=== PATIENT | female | born 1945 | race Caucasian/White ===

== ENCOUNTER 2019-06-29 09:02 | Emergency (ER) | payer MEDICARE, OTHER ==
[~2019-06-29] VITALS: Ht 162.6 cm; Wt 90.7 kg
[2019-06-29] MEDS ORDERED: Atenolol50 MG PO (09:55)
[2019-06-29] MEDS ORDERED: LOVA40 PO (09:56)
[2019-06-29] MEDS ORDERED: ESOMEPRAZOLE MA40 MG PO (09:56)
[2019-06-29 10:24] LABS: BASOPHILS ABSOLUTE AUTO 0.09 K/mm3 (0.00-0.23); BASOPHILS PERCENT AUTO 0 % (0-2); EOSINOPHILS ABSOLUTE AUTO 0.02 K/mm3 (0.00-0.68); EOSINOPHILS PERCENT AUTO 0 % (0-6); Hemoglobin 13.5 g/dL (11.5-16.0); IMMATURE GRAN ABSOLUTE AUTO 0.17 K/mm3 (0.00-0.10); IMMATURE GRAN PERCENT AUTO 1 % (0-1); LYMPHOCYTES ABSOLUTE AUTO 2.52 K/mm3 (0.84-5.20); LYMPHOCYTES PERCENT AUTO 9 % (21-46); MONOCYTES ABSOLUTE AUTO 1.09 K/mm3 (0.16-1.47); MONOCYTES PERCENT AUTO 4 % (4-13); Mean Corpuscular HGB 28.7 pg (26.0-34.0); Mean Corpuscular HGB Conc 32.1 g/dL (31.5-36.5); Mean Corpuscular Volume 89 fL (80-100); Mean Platelet Volume 11.3 fL (9.1-12.4); NEUTROPHILS ABSOLUTE AUTO 22.89 K/mm3 (1.96-9.15); NEUTROPHILS PERCENT AUTO 86 % (41-73); Platelet Count 172 K/mm3 (150-400); RDW Standard Deviation 45.4 fL (35.1-46.3); White Blood Cell Count 26.78 K/mm3 (4.00-11.30)
[2019-06-29 10:47] LABS: Alanine Aminotransfer (ALT/SGP 35 U/L (12-78); Albumin, Blood 3.5 g/dL (3.4-5.0); Alk Phos 111 U/L (50-136); Anion Gap 8 mmol/L (6-16); Aspartate Aminotrans (AST/SGOT 25 U/L (12-37); Bilirubin, Total 0.7 mg/dL (0.1-1.0); Blood Urea Nitrogen 23 mg/dL (8-24); Bun/Creatinine Ratio 31.3 (12.0-20.0); CO2, Blood 21 mmol/L (21-32); Calcium, Blood 8.7 mg/dL (8.5-10.1); Chloride, Blood 110 mmol/L (98-108); Creatinine, Blood 0.73 mg/dL (0.40-1.00); Globulin, Blood 3.6 g/dL (2.2-4.0); Glomerular Filtration Rate >60 (60-); Glucose, Blood 110 mg/dL (70-99); Potassium, Blood 4.2 mmol/L (3.5-5.5); Sodium, Blood 139 mmol/L (136-145); Total Protein, Blood 7.1 g/dL (6.4-8.2)
[2019-06-29 11:04] LABS: Source, Urine Clean Catch
[2019-06-29 11:07] LABS: Bilirubin, Urine Neg (Neg); Blood, Urine 2+ (Neg); Glucose Qualitative, Urine Neg (Neg); Ketones, Urine 1+ (Neg); Leukocyte Esterase, Urine 1+ (Neg); Nitrite, Urine Pos (Neg); Protein, Urine 1+ (Neg); Urobilinogen, Urine NORM (Normal)
[2019-06-29 11:17] LABS: Appearance, Urine Cloudy (Clear); Color, Urine Yellow (P-Yellow)
[2019-06-29 11:18] LABS: Bacteria Many /hpf; Squamous Epithelial Cells Few /hpf (Few)
[2019-06-29] MEDS ORDERED: AZIT250 PO (11:42)
== END 2019-06-29 11:57 | disposition home or self-care (01) ==
LOC: ER 09:02
PROVIDERS: Emergency Medicine
DX: J18.1 Lobar pneumonia, unspecified organism (principal); Z91.018 Allergy to other foods; Z87.891 Personal history of nicotine dependence
CPT/HCPCS: 36415; 71045; 80053; 81001; 85025; 87077; 87086; 87186; 93005; 93010; 96365; 99284-25; J0696

== ENCOUNTER 2019-07-22 08:54 | Emergency (ER) | payer MEDICARE, OTHER ==
[~2019-07-22] VITALS: Ht 162.6 cm; Wt 90.7 kg
[~2019-07-22 08:54] MED LIST: AZIT250 PO; Atenolol50 MG PO; ESOMEPRAZOLE MA40 MG PO; LOVA40 PO
[2019-07-22 10:05] LABS: BASOPHILS ABSOLUTE AUTO 0.07 K/mm3 (0.00-0.23); BASOPHILS PERCENT AUTO 0 % (0-2); EOSINOPHILS ABSOLUTE AUTO 0.08 K/mm3 (0.00-0.68); EOSINOPHILS PERCENT AUTO 0 % (0-6); Hematocrit 41.6 % (33.0-51.0); Hemoglobin 13.4 g/dL (11.5-16.0); IMMATURE GRAN ABSOLUTE AUTO 0.09 K/mm3 (0.00-0.10); IMMATURE GRAN PERCENT AUTO 0 % (0-1); LYMPHOCYTES PERCENT AUTO 12 % (21-46); MONOCYTES ABSOLUTE AUTO 0.91 K/mm3 (0.16-1.47); MONOCYTES PERCENT AUTO 4 % (4-13); Mean Corpuscular HGB 27.9 pg (26.0-34.0); Mean Corpuscular HGB Conc 32.2 g/dL (31.5-36.5); Mean Corpuscular Volume 87 fL (80-100); Mean Platelet Volume 11.4 fL (9.1-12.4); NEUTROPHILS ABSOLUTE AUTO 19.09 K/mm3 (1.96-9.15); NEUTROPHILS PERCENT AUTO 83 % (41-73); Platelet Count 216 K/mm3 (150-400); RDW Standard Deviation 44.7 fL (35.1-46.3); White Blood Cell Count 22.94 K/mm3 (4.00-11.30)
[2019-07-22 10:22] LABS: Alanine Aminotransfer (ALT/SGP 32 U/L (12-78); Albumin, Blood 3.8 g/dL (3.4-5.0); Alk Phos 118 U/L (50-136); Anion Gap 9 mmol/L (6-16); Aspartate Aminotrans (AST/SGOT 18 U/L (12-37); Bilirubin, Total 0.6 mg/dL (0.1-1.0); Blood Urea Nitrogen 23 mg/dL (8-24); Bun/Creatinine Ratio 30.5 (12.0-20.0); CO2, Blood 25 mmol/L (21-32); Calcium, Blood 9.2 mg/dL (8.5-10.1); Chloride, Blood 106 mmol/L (98-108); Creatinine, Blood 0.75 mg/dL (0.40-1.00); Globulin, Blood 3.7 g/dL (2.2-4.0); Glomerular Filtration Rate >60 (60-); Glucose, Blood 112 mg/dL (70-99); Potassium, Blood 4.2 mmol/L (3.5-5.5); Sodium, Blood 140 mmol/L (136-145); Total Protein, Blood 7.5 g/dL (6.4-8.2)
[2019-07-22 11:19] LABS: Source, Urine Voided
[2019-07-22 11:29] LABS: Appearance, Urine Clear (Clear); Bilirubin, Urine Neg (Neg); Blood, Urine Neg (Neg); Color, Urine Yellow (P-Yellow); Glucose Qualitative, Urine Neg (Neg); Ketones, Urine Neg (Neg); Leukocyte Esterase, Urine Neg (Neg); Nitrite, Urine Neg (Neg); Protein, Urine Neg (Neg); Urobilinogen, Urine NORM (Normal)
[2019-07-22] MEDS ORDERED: ALBU90OI INH (12:13)
[2019-07-22] MEDS ORDERED: Zithromax250 MG PO (12:13)
== END 2019-07-22 12:18 | disposition home or self-care (01) ==
LOC: ER 08:54
PROVIDERS: Emergency Medicine
DX: R05 Cough (principal); R06.2 Wheezing; D72.829 Elevated white blood cell count, unspecified; I10 Essential (primary) hypertension; E78.00 Pure hypercholesterolemia, unspecified; Z87.891 Personal history of nicotine dependence; Z91.018 Allergy to other foods; Z79.899 Other long term (current) drug therapy
CPT/HCPCS: 36415; 71046; 80053; 81003; 85025; 99283-25

== ENCOUNTER 2020-10-09 13:23 | Emergency (ER) | payer MEDICARE, OTHER ==
[~2020-10-09] VITALS: Ht 162.6 cm; Wt 99.8 kg
[~2020-10-09 13:23] MED LIST changes: +ALBU90OI INH; -Atenolol50 MG PO; -ESOMEPRAZOLE MA40 MG PO; -LOVA40 PO; +Zithromax250 MG PO
[2020-10-09 14:02] LABS: BASOPHILS ABSOLUTE AUTO 0.07 K/mm3 (0.00-0.23); BASOPHILS PERCENT AUTO 1 % (0-2); EOSINOPHILS ABSOLUTE AUTO 0.25 K/mm3 (0.00-0.68); EOSINOPHILS PERCENT AUTO 2 % (0-6); Hematocrit 42.1 % (33.0-51.0); Hemoglobin 13.4 g/dL (11.5-16.0); IMMATURE GRAN ABSOLUTE AUTO 0.05 K/mm3 (0.00-0.10); IMMATURE GRAN PERCENT AUTO 0 % (0-1); LYMPHOCYTES ABSOLUTE AUTO 2.87 K/mm3 (0.84-5.20); LYMPHOCYTES PERCENT AUTO 23 % (21-46); MONOCYTES ABSOLUTE AUTO 0.77 K/mm3 (0.16-1.47); MONOCYTES PERCENT AUTO 6 % (4-13); Mean Corpuscular HGB 27.3 pg (26.0-34.0); Mean Corpuscular HGB Conc 31.8 g/dL (31.5-36.5); Mean Corpuscular Volume 86 fL (80-100); Mean Platelet Volume 10.9 fL (9.1-12.4); NEUTROPHILS ABSOLUTE AUTO 8.55 K/mm3 (1.96-9.15); NEUTROPHILS PERCENT AUTO 68 % (41-73); Platelet Count 235 K/mm3 (150-400); RDW Coefficient Variation 13.8 % (11.7-14.2); RDW Standard Deviation 42.8 fL (35.1-46.3); White Blood Cell Count 12.56 K/mm3 (4.00-11.30)
[2020-10-09 14:23] LABS: Alanine Aminotransfer (ALT/SGP 32 U/L (12-78); Albumin, Blood 3.8 g/dL (3.4-5.0); Alk Phos 146 U/L (50-136); Anion Gap 10 mmol/L (6-16); Aspartate Aminotrans (AST/SGOT 18 U/L (12-37); Bilirubin, Total 0.3 mg/dL (0.1-1.0); Blood Urea Nitrogen 20 mg/dL (8-24); Bun/Creatinine Ratio 28.8 (12.0-20.0); CO2, Blood 23 mmol/L (21-32); Calcium, Blood 8.8 mg/dL (8.5-10.1); Chloride, Blood 107 mmol/L (98-108); Creatinine, Blood 0.69 mg/dL (0.40-1.00); Glomerular Filtration Rate >60 (60-); Glucose, Blood 125 mg/dL (70-99); Sodium, Blood 140 mmol/L (136-145); Total Protein, Blood 7.8 g/dL (6.4-8.2)
[2020-10-09 16:45] LABS: Source, Urine Voided
[2020-10-09 16:50] LABS: Appearance, Urine Clear (Clear); Bilirubin, Urine Neg (Neg); Blood, Urine Neg (Neg); Color, Urine Yellow (P-Yellow); Glucose Qualitative, Urine Neg (Neg); Ketones, Urine Neg (Neg); Leukocyte Esterase, Urine Neg (Neg); Nitrite, Urine Pos (Neg); Protein, Urine Neg (Neg); Specific Gravity, Urine 1.015 (1.003-1.022); Urobilinogen, Urine NORM (Normal)
[2020-10-09 17:02] LABS: Bacteria Many /hpf; Red Blood Cells, Urine 0-2 /hpf (0-2); Squamous Epithelial Cells Few /hpf (Few)
[2020-10-09] MEDS ORDERED: Pepcid20 MG PO (17:37)
[2020-10-09] MEDS ORDERED: ACETAMINOPHEN500 MG PO (17:37)
[2020-10-09] MEDS ORDERED: CEPH500 PO (17:37)
== END 2020-10-09 18:00 | disposition home or self-care (01) ==
LOC: ER 13:23
PROVIDERS: Emergency Medicine; Physician Assistant
DX: N39.0 Urinary tract infection, site not specified (principal); K52.9 Noninfective gastroenteritis and colitis, unspecified; K44.9 Diaphragmatic hernia without obstruction or gangrene; I10 Essential (primary) hypertension; E78.00 Pure hypercholesterolemia, unspecified; Z88.8 Allergy status to other drugs, medicaments and biological substances; Z91.048 Other nonmedicinal substance allergy status; Z79.899 Other long term (current) drug therapy; Z87.891 Personal history of nicotine dependence
CPT/HCPCS: 36415; 74177; 80053; 81001; 83690; 84484; 85025; 87077; 87086; 87186; 93005; 93010; 96361; 96365-59; 99285-25; A9270; J0696; J7030; Q9967

== ENCOUNTER 2020-11-15 14:19 | Inpatient (IN) | payer MEDICARE, OTHER ==
[~2020-11-15] VITALS: Ht 162.6 cm; Wt 90.7 kg
[~2020-11-15 14:19] MED LIST changes: +ACETAMINOPHEN500 MG PO; +CEPH500 PO; +Pepcid20 MG PO
[2020-11-15 15:11] LABS: BASOPHILS ABSOLUTE AUTO 0.06 K/mm3 (0.00-0.23); BASOPHILS PERCENT AUTO 0 % (0-2); EOSINOPHILS ABSOLUTE AUTO 0.04 K/mm3 (0.00-0.68); EOSINOPHILS PERCENT AUTO 0 % (0-6); Hematocrit 41.7 % (33.0-51.0); Hemoglobin 13.4 g/dL (11.5-16.0); IMMATURE GRAN ABSOLUTE AUTO 0.15 K/mm3 (0.00-0.10); IMMATURE GRAN PERCENT AUTO 1 % (0-1); LYMPHOCYTES ABSOLUTE AUTO 1.69 K/mm3 (0.84-5.20); LYMPHOCYTES PERCENT AUTO 8 % (21-46); MONOCYTES ABSOLUTE AUTO 0.97 K/mm3 (0.16-1.47); MONOCYTES PERCENT AUTO 4 % (4-13); Mean Corpuscular HGB 27.1 pg (26.0-34.0); Mean Corpuscular HGB Conc 32.1 g/dL (31.5-36.5); Mean Corpuscular Volume 84 fL (80-100); Mean Platelet Volume 11.7 fL (9.1-12.4); NEUTROPHILS ABSOLUTE AUTO 19.66 K/mm3 (1.96-9.15); NEUTROPHILS PERCENT AUTO 87 % (41-73); Platelet Count 247 K/mm3 (150-400); RDW Coefficient Variation 13.8 % (11.7-14.2); RDW Standard Deviation 42.3 fL (35.1-46.3); Red Blood Cell Count 4.95 M/mm3 (3.80-5.20); White Blood Cell Count 22.57 K/mm3 (4.00-11.30)
[2020-11-15 15:40] LABS: Alanine Aminotransfer (ALT/SGP 29 U/L (12-78); Albumin, Blood 3.9 g/dL (3.4-5.0); Alk Phos 149 U/L (50-136); Anion Gap 8 mmol/L (6-16); Aspartate Aminotrans (AST/SGOT 26 U/L (12-37); Bilirubin, Total 0.6 mg/dL (0.1-1.0); Blood Urea Nitrogen 19 mg/dL (8-24); Bun/Creatinine Ratio 24.9 (12.0-20.0); CO2, Blood 26 mmol/L (21-32); Calcium, Blood 9.6 mg/dL (8.5-10.1); Chloride, Blood 106 mmol/L (98-108); Creatinine, Blood 0.76 mg/dL (0.40-1.00); Globulin, Blood 3.8 g/dL (2.2-4.0); Glomerular Filtration Rate >60 (60-); Glucose, Blood 119 mg/dL (70-99); Potassium, Blood 4.1 mmol/L (3.5-5.5); Sodium, Blood 140 mmol/L (136-145); Total Protein, Blood 7.7 g/dL (6.4-8.2)
[2020-11-15] MEDS ORDERED: HYDROCODONE-AC1 EA11 PO (17:01)
[2020-11-15] MEDS ORDERED: FAMO20 PO (17:01)
[2020-11-15] MEDS ORDERED: Atenolol50 MG PO (17:02)
[2020-11-15] MEDS ORDERED: Prinivil10 MG PO (17:02)
[2020-11-15] MEDS ORDERED: LOVA40 PO (17:02)
[2020-11-15] MEDS ORDERED: ESOMEPRAZOLE MA40 MG PO (17:03)
--- NOTE | 2020-11-15 21:00 | NUR ---
pt arrived to room from ER via stretcher, a/o x 4, pleasant/cooperative and talkative. dunn catheter inserted per orders, UA send. COVID-19 sample send per orders. pt oriented to room/call light, PO fluids provided as well as analgesia per nov. pt provided health hx and med rec.
[2020-11-15 21:19] LABS: Source, Urine Catheter
[2020-11-15 21:22] LABS: Bilirubin, Urine Neg (Neg); Blood, Urine 1+ (Neg); Glucose Qualitative, Urine Neg (Neg); Ketones, Urine 2+ (Neg); Leukocyte Esterase, Urine 2+ (Neg); Nitrite, Urine Pos (Neg); Protein, Urine Neg (Neg); Urobilinogen, Urine NORM (Normal)
[2020-11-15 21:28] LABS: Appearance, Urine Hazy (Clear); Color, Urine Yellow (P-Yellow)
[2020-11-15 21:29] LABS: Bacteria Many /hpf; Red Blood Cells, Urine Not Seen /hpf (0-2); Squamous Epithelial Cells Few /hpf (Few); White Blood Cells, Urine TNTC /hpf (0-5)
[2020-11-15 22:14] LABS: Influenza A, PCR NEGATIVE (NEGATIVE); Influenza B, PCR NEGATIVE (NEGATIVE); Resp Syncytial Virus, PCR NEGATIVE (NEGATIVE); SARS-Cov-2 (COVID-19) PCR, MMC NEGATIVE (NEGATIVE)
--- NOTE | 2020-11-15 22:55 | NUR ---
ASSUMED CARE OF PT. PT WAS STARTED ON IV ABX FOR UTI, FLUIDS ALSO STARTED. SURGICAL PACKET ON CHART. PT RESTING COMFORTABLEY AT THIS TIME.
[2020-11-16 04:36] LABS: BASOPHILS ABSOLUTE AUTO 0.04 K/mm3 (0.00-0.23); BASOPHILS PERCENT AUTO 0 % (0-2); EOSINOPHILS ABSOLUTE AUTO 0.22 K/mm3 (0.00-0.68); EOSINOPHILS PERCENT AUTO 2 % (0-6); Hematocrit 34.6 % (33.0-51.0); Hemoglobin 11.7 g/dL (11.5-16.0); IMMATURE GRAN ABSOLUTE AUTO 0.05 K/mm3 (0.00-0.10); IMMATURE GRAN PERCENT AUTO 0 % (0-1); LYMPHOCYTES ABSOLUTE AUTO 1.82 K/mm3 (0.84-5.20); LYMPHOCYTES PERCENT AUTO 15 % (21-46); MONOCYTES ABSOLUTE AUTO 0.85 K/mm3 (0.16-1.47); MONOCYTES PERCENT AUTO 7 % (4-13); Mean Corpuscular HGB 27.9 pg (26.0-34.0); Mean Corpuscular HGB Conc 33.8 g/dL (31.5-36.5); Mean Corpuscular Volume 83 fL (80-100); Mean Platelet Volume 11.5 fL (9.1-12.4); NEUTROPHILS PERCENT AUTO 76 % (41-73); Platelet Count 194 K/mm3 (150-400); RDW Coefficient Variation 13.9 % (11.7-14.2); RDW Standard Deviation 41.7 fL (35.1-46.3); Red Blood Cell Count 4.19 M/mm3 (3.80-5.20); White Blood Cell Count 12.28 K/mm3 (4.00-11.30)
[2020-11-16 04:53] LABS: Anion Gap 7 mmol/L (6-16); Blood Urea Nitrogen 21 mg/dL (8-24); Bun/Creatinine Ratio 25.4 (12.0-20.0); CO2, Blood 25 mmol/L (21-32); Calcium, Blood 8.6 mg/dL (8.5-10.1); Chloride, Blood 105 mmol/L (98-108); Creatinine, Blood 0.83 mg/dL (0.40-1.00); Glomerular Filtration Rate >60 (60-); Glucose, Blood 118 mg/dL (70-99); Potassium, Blood 3.8 mmol/L (3.5-5.5); Sodium, Blood 137 mmol/L (136-145)
--- NOTE | 2020-11-16 05:34 | NUR ---
PT WAS NEW ADMIT THIS SHIFT FOR LEFT HIP FX S/P GLF. PT HAS DONE WELL DURING NIGHT. PAIN IS TOLERABLE. VARGSA IS IN PLACE AND DRAINING WELL. IVF INFUSING, NEW 18G IV STARTED IN RFA. SURGICAL PACKET ON CHART, COVID SWAB COMPLETED AND NEGATIVE. PLAN FOR OR TODAY FOR ADD ON SATHISH ARTHOPLASTY WITH DR. BUENO. CALL LIGHT IN REACH. WILL REPORT OFF.
--- NOTE | 2020-11-16 08:19 | NUR ---
History, Chart, Medications and Allergies reviewed before start of procedure. Lungs clear T/O to Auscultation. Patient confirms NPO status and agrees with scheduled surgery. Pre-Op teaching done. Pt verbalizes understanding.
[2020-11-16 15:16] LABS: PCO2 Arterial 37.8 mmHg (35-45); PO2 Arterial 78.6 mmHg (80-100); pH Blood Arterial 7.39 (7.35-7.45)
[2020-11-16 15:27] LABS: Albumin, Blood 2.9 g/dL (3.4-5.0); Anion Gap 6 mmol/L (6-16); Blood Urea Nitrogen 22 mg/dL (8-24); CO2, Blood 25 mmol/L (21-32); CPK Creatine Kinase 444 U/L (26-193); Calcium, Blood 7.9 mg/dL (8.5-10.1); Chloride, Blood 105 mmol/L (98-108); Creatinine, Blood 0.88 mg/dL (0.40-1.00); Glomerular Filtration Rate >60 (60-); Glucose, Blood 148 mg/dL (70-99); Phosphorus, Blood 2.7 mg/dL (2.5-4.9); Potassium, Blood 4.3 mmol/L (3.5-5.5); Sodium, Blood 136 mmol/L (136-145)
--- NOTE | 2020-11-16 18:24 | NUR ---
SHIFT SUMMARY PT A&OX4, VSS, S/P L SATHISH HIP, AQUACEL CDI. PAIN TREATED WITH 5 NORCO AND TORADOL. SABRINA PO, DENIES N&V. VARGAS PATENT & DRAINING YELLOW URINE, STAT LOCK ON, OFF FLOOR. STAND PIVOT 2 PP MAX TO CHAIR. IVF @ 75 MLS/HR. 2 IVS RUE. WILL REPORT TO ONCOMING NOC MARCIO.
--- NOTE | 2020-11-17 03:08 | NUR ---
SHIFT SUMMARY: POD 1 SATHISH HIP REPAIR PATIENT IS ALERT AND ORIENTED X3 BUT IS EASILY REORIENTED. VS ARE WNL AND ON 2L OXYGEN VIA NC. PAIN IS CONTROLLED WITH TYLENOL, TORADOL, AND NORCO. SHE IS A 2-3 PERSON MAX ASSIST WITH GIAT BELT AND FWW. SHE DENIES NUMBNESS AND TINGLING IN EXTREMITIES. SHE IS ALSO ABLE TO WIGGLE FINGERS AND TOES. AQUACEL IS D/C/I. VARGAS IS PATENT WITH YELLOW URINE DRAINING BY GRAVITY INTO VARGAS BAG. SHE IS CURRENTLY LAYING IN BED WITH EYES CLOSED. CALL LIGHT WITHIN REACH. THE PLAN IS TO WORK WITH PT/OT TODAY AND TO CONTINUE PAIN MANAGEMENT.
[2020-11-17 04:25] LABS: Hematocrit 30.2 % (33.0-51.0); Hemoglobin 9.6 g/dL (11.5-16.0); Mean Corpuscular HGB Conc 31.8 g/dL (31.5-36.5); Mean Corpuscular Volume 85 fL (80-100); Mean Platelet Volume 11.4 fL (9.1-12.4); Platelet Count 192 K/mm3 (150-400); RDW Standard Deviation 43.6 fL (35.1-46.3); Red Blood Cell Count 3.56 M/mm3 (3.80-5.20)
[2020-11-17 04:44] LABS: Albumin, Blood 2.6 g/dL (3.4-5.0); Anion Gap 5 mmol/L (6-16); Blood Urea Nitrogen 29 mg/dL (8-24); Bun/Creatinine Ratio 30.3 (12.0-20.0); CO2, Blood 26 mmol/L (21-32); CPK Creatine Kinase 753 U/L (26-193); Calcium, Blood 7.8 mg/dL (8.5-10.1); Chloride, Blood 108 mmol/L (98-108); Creatinine, Blood 0.96 mg/dL (0.40-1.00); Glomerular Filtration Rate >60 (60-); Glucose, Blood 127 mg/dL (70-99); Phosphorus, Blood 2.8 mg/dL (2.5-4.9); Sodium, Blood 139 mmol/L (136-145)
--- NOTE | 2020-11-17 07:52 | NUR ---
pt stated she has to have another bm assisted onto the bedpan 2 person
--- NOTE | 2020-11-17 09:23 | NUR ---
dr cheng placed order for labs and cxry pt req 3 l o2 nc
--- NOTE | 2020-11-17 11:18 | NUR ---
dr cheng by to see pt is/tcdb with demonstration pt able to get it to 1000 the first time then 500
--- NOTE | 2020-11-17 12:50 | NUR ---
pt amb with fww to bathroom to have bm with gait belt
--- NOTE | 2020-11-17 13:35 | NUR ---
pt visiting with her son
--- NOTE | 2020-11-17 17:09 | NUR ---
11/17/20 1709 Pap,Dominik D VERIFICATION: CHARTING IMPLANTS
--- NOTE | 2020-11-18 03:10 | NUR ---
SHIFT SUMMARY: POD 2 LEFT SATHISH REPAIR PATIENT IS ALERT AND ORIENTED X3. VS ARE WNL AND IS ON 3L OF OXYGEN. PATIENT HAS BEEN ENCOURAGED TO USE INCENTIVE SPIROMETER AND INCREASE AMBULATION SO SHE DOESN'T NEED OXYGEN. PATIENT VERBALIZED UNDERSTANDNING. PAIN IS CONTROLLED WITH 2 NORCO'S PO THOUGH HAS DENIED PAIN DURING THIS SHIFT. PATIENT IS A 2-3 PERSON MAX ASSIST WITH GAIT BELT AND FWW. PATIENT DENIES NUMBNESS AND TINGLING IN ALL EXTREMITIES. Oyster IS C/D/I. VARGAS IS PATENT WITH CLOUDY YELLOW URINE OUTPUT. PATIENT IS CURRENTLY LAYING IN BED WITH CALL LIGHT IN REACH. SHE CALLS APPROPRIATELY. THE PLAN IS TO INCREASE AMBULATION/INCENTIVE SPIROMETER USE WELL WORK WITH PT/OT.
[2020-11-18 04:33] LABS: Hematocrit 27.7 % (33.0-51.0); Hemoglobin 8.8 g/dL (11.5-16.0); Mean Corpuscular HGB 26.8 pg (26.0-34.0); Mean Corpuscular HGB Conc 31.8 g/dL (31.5-36.5); Mean Corpuscular Volume 85 fL (80-100); Mean Platelet Volume 11.4 fL (9.1-12.4); Platelet Count 207 K/mm3 (150-400); RDW Coefficient Variation 14.5 % (11.7-14.2); RDW Standard Deviation 44.1 fL (35.1-46.3); Red Blood Cell Count 3.28 M/mm3 (3.80-5.20); White Blood Cell Count 18.11 K/mm3 (4.00-11.30)
[2020-11-18 04:54] LABS: Albumin, Blood 2.6 g/dL (3.4-5.0); Anion Gap 5 mmol/L (6-16); Blood Urea Nitrogen 25 mg/dL (8-24); Bun/Creatinine Ratio 33.3 (12.0-20.0); CO2, Blood 25 mmol/L (21-32); CPK Creatine Kinase 504 U/L (26-193); Chloride, Blood 107 mmol/L (98-108); Creatinine, Blood 0.75 mg/dL (0.40-1.00); Glomerular Filtration Rate >60 (60-); Glucose, Blood 99 mg/dL (70-99); Phosphorus, Blood 2.3 mg/dL (2.5-4.9); Potassium, Blood 4.2 mmol/L (3.5-5.5); Sodium, Blood 137 mmol/L (136-145)
--- NOTE | 2020-11-18 18:20 | NUR ---
SHIFT SUMMARY PT IS POD#2 FROM L SATHISH HIP WITH DR. BUENO. PT IS A 1 PERSON ASSIST TO THE BATHROOM. PAIN MANAGED WITH NORCO THIS SHIFT. VARGAS CATH REMOVED AND PT IS VOIDING. PLAN FOR DC TO SNF ON FRIDAY OR WHEN STABLE. VSS. WILL MONITOR UNTIL REPORT TO ONCOMING RN.
[2020-11-19 05:09] LABS: Hematocrit 25.8 % (33.0-51.0); Hemoglobin 8.3 g/dL (11.5-16.0); Mean Corpuscular HGB 27.3 pg (26.0-34.0); Mean Corpuscular HGB Conc 32.2 g/dL (31.5-36.5); Mean Corpuscular Volume 85 fL (80-100); Mean Platelet Volume 11.4 fL (9.1-12.4); Platelet Count 194 K/mm3 (150-400); RDW Coefficient Variation 14.6 % (11.7-14.2); RDW Standard Deviation 44.5 fL (35.1-46.3); Red Blood Cell Count 3.04 M/mm3 (3.80-5.20); White Blood Cell Count 12.33 K/mm3 (4.00-11.30)
[2020-11-19 05:55] LABS: Albumin, Blood 2.5 g/dL (3.4-5.0); Anion Gap 3 mmol/L (6-16); Blood Urea Nitrogen 15 mg/dL (8-24); Bun/Creatinine Ratio 21.6 (12.0-20.0); CO2, Blood 28 mmol/L (21-32); CPK Creatine Kinase 447 U/L (26-193); Calcium, Blood 8.4 mg/dL (8.5-10.1); Chloride, Blood 109 mmol/L (98-108); Ferritin, Serum 86 ng/mL (8-252); Glomerular Filtration Rate >60 (60-); Glucose, Blood 95 mg/dL (70-99); Iron Serum 12 ug/dL (50-170); Percent Saturation 4.7 % (15.0-50.0); Potassium, Blood 4.4 mmol/L (3.5-5.5); Sodium, Blood 140 mmol/L (136-145); Total Iron Binding Capacity 255 ug/dL (250-450)
--- NOTE | 2020-11-19 07:14 | NUR ---
SUMMARY PT WITH NO ACUTE CHANGES TONIGHT.SLEPT.
--- NOTE | 2020-11-19 19:37 | NUR ---
SHIFT SUMMARY PT IS POD#3 FROM L SATHISH HIP WITH DR. BUENO. PT IS A 1 PERSON ASSIST TO THE BATHROOM WITH WALKER AND GAIT BELT. PAIN MANAGED WITH PO PAIN MEDICATION. VSS. REPORT GIVEN TO PONCHO BUCKLEY.
--- NOTE | 2020-11-20 11:00 | NUR ---
DR EID BEEN TO SEE PT.
--- NOTE | 2020-11-20 19:08 | NUR ---
SHIFT SUMMARY PT EATING AND DRINKING, VOIDING. PT WORKED WITH THERAPY TODAY. PT WAS UP TO CHAIR TODAY. PT AMBULATED TO BATHROOM TODAY WITH ASSIST, WALKERCAITY. PT USING CALL LIGHT APPR. PT BEEN ASSISTED WITH ADL'S PRN.
--- NOTE | 2020-11-21 03:19 | NUR ---
SHIFT SUMMARY: POD 5 LEFT HIP REPAIR PATIENT IS ALERT AND ORIENTED X4. VS ARE WNL AND IS ON RA. PAIN IS CONTROLLED WITH 2 NORCO'S PO. PATIENT HAS BEEN AWAKE MOST OF THE SHIFT SO FAR WITH CONSISTENT NEED TO USE THE BEDPAN/TOILET. HER URINE OUTPUT EACH TIME IS 100-200ML EACH TIME. SHE HAS BEEN REPOSITIONED WITH PILLOWS WHEN NEEDING TO USE THE BATHROOM TO KEEP PRESSURE OFF HER BOTTOM FOR A LITTLE BIT. AQUACEL IS C/D/I. PATIENT USES THE CALL LIGHT APPROPRIATELY. SHE IS CURRENTLY LAYING WITH EYES CLOSED WITH EQUAL/EVEN RESPIRATIONS. CALL LIGHT WITHIN REACH. THE PLAN IS TO CONTINUE PT/OT AND POSSIBLE D/C TO SNF.
[2020-11-21 10:50] LABS: Influenza A, PCR NEGATIVE (NEGATIVE); Influenza B, PCR NEGATIVE (NEGATIVE); Resp Syncytial Virus, PCR NEGATIVE (NEGATIVE); SARS-Cov-2 (COVID-19) PCR, MMC NEGATIVE (NEGATIVE)
--- NOTE | 2020-11-21 11:49 | NUR ---
DR RAGINI MUELLER [facility] TODAY, REPORTED OK FOR PT TO HAVE NO IV. PT REPORTED TO BE DISCHARGED TODAY TO SNF, [employer]ER ASSISTING WITH DISCHARGE. SCRIPT ON CHART.
--- NOTE | 2020-11-21 13:23 | NUR ---
Brief Support Visit Pt sitting in recliner chair upon arrival. Pt reports mild but manageable pain. Pt denies dyspnea at this time. Reviewed D/C paln with Pt. Pt is agreeable to D/C plan but reports mild anxiety and states concerns regarding the potential for COVID-19 outbreaks. Continued therapeutic listening and answered questions. Pt reports no other concerns at this time. Spoke with Bedside MARCIO Lin and discussed case. Palliative Care will remain available.
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
--- NOTE | 2020-11-21 15:40 | NUR ---
PT HAD NO IV IN PLACE.
== END 2020-11-21 15:40 | DRG 521 ==
LOC: ER 14:19 → ERHOLD 17:03 → SURS 17:03
PROVIDERS: Emergency Medicine; Internal Medicine; Nurse Practitioner Acute Care; Orthopaedic Surgery; ADMIT Internal Medicine
PROC: 0SRS0JA Replacement of Left Hip Joint, Femoral Surface with Synthetic Substitute, Uncemented, Open Approach (ICD-10-PCS; principal; 2020-11-16 09:00)
DX: S72.002A Fracture of unspecified part of neck of left femur, initial encounter for closed fracture (principal); G92 Toxic encephalopathy; J96.01 Acute respiratory failure with hypoxia; N39.0 Urinary tract infection, site not specified; M62.82 Rhabdomyolysis; Z20.822 Contact with and (suspected) exposure to COVID-19; T41.45XA Adverse effect of unspecified anesthetic, initial encounter; B96.20 Unspecified Escherichia coli [E. coli] as the cause of diseases classified elsewhere; E78.00 Pure hypercholesterolemia, unspecified; K22.70 Barrett's esophagus without dysplasia; E83.39 Other disorders of phosphorus metabolism; M54.5 Low back pain; Z91.81 History of falling; Z85.43 Personal history of malignant neoplasm of ovary; Z96.641 Presence of right artificial hip joint; Z87.891 Personal history of nicotine dependence; Z90.49 Acquired absence of other specified parts of digestive tract; Z79.899 Other long term (current) drug therapy; W18.2XXA Fall in (into) shower or empty bathtub, initial encounter
CPT/HCPCS: 0241U; 36415; 36600; 71045; 72170; 73552; 80048; 80053; 80069; 81001; 82550; 82607; 82728; 82746; 82803; 83540; 83550; 83880; 84145; 85025; 85027; 87077; 87086; 87186; 88305; 88311; 93005; 93010; 94640; 94760; 97110; 97116; 97140; 97161; 97530; 99285-25; A9270; C1776; J0171; J0690; J0696; J0735; J1100; J1170; J1650; J1885; J2370; J2405; J2704; J2795; J3010; J7030; J7060; J7120

== ENCOUNTER 2021-03-27 17:21 | Emergency (ER) | payer MEDICARE, OTHER ==
[~2021-03-27] VITALS: Ht 162.6 cm; Wt 86.2 kg
[~2021-03-27 17:21] MED LIST changes: +Atenolol50 MG PO; +ESOMEPRAZOLE MA40 MG PO; +FAMO20 PO; +HYDROCODONE-AC1 EA11 PO; +LOVA40 PO; +Prinivil10 MG PO
[2021-03-27 17:54] LABS: BASOPHILS ABSOLUTE AUTO 0.05 K/mm3 (0.00-0.23); BASOPHILS PERCENT AUTO 0 % (0-2); EOSINOPHILS ABSOLUTE AUTO 0.29 K/mm3 (0.00-0.68); EOSINOPHILS PERCENT AUTO 2 % (0-6); Hematocrit 36.2 % (33.0-51.0); Hemoglobin 11.2 g/dL (11.5-16.0); IMMATURE GRAN ABSOLUTE AUTO 0.03 K/mm3 (0.00-0.10); IMMATURE GRAN PERCENT AUTO 0 % (0-1); LYMPHOCYTES ABSOLUTE AUTO 3.27 K/mm3 (0.84-5.20); LYMPHOCYTES PERCENT AUTO 28 % (21-46); MONOCYTES ABSOLUTE AUTO 0.85 K/mm3 (0.16-1.47); MONOCYTES PERCENT AUTO 7 % (4-13); Mean Corpuscular HGB Conc 30.9 g/dL (31.5-36.5); Mean Corpuscular Volume 75 fL (80-100); Mean Platelet Volume 10.9 fL (9.1-12.4); NEUTROPHILS ABSOLUTE AUTO 7.36 K/mm3 (1.96-9.15); NEUTROPHILS PERCENT AUTO 62 % (41-73); Platelet Count 280 K/mm3 (150-400); RDW Coefficient Variation 18.1 % (11.7-14.2); Red Blood Cell Count 4.86 M/mm3 (3.80-5.20); White Blood Cell Count 11.85 K/mm3 (4.00-11.30)
[2021-03-27 18:45] LABS: Alanine Aminotransfer (ALT/SGP 17 U/L (12-78); Albumin, Blood 3.8 g/dL (3.4-5.0); Alk Phos 137 U/L (50-136); Anion Gap 8 mmol/L (6-16); Aspartate Aminotrans (AST/SGOT 11 U/L (12-37); Bilirubin, Total 0.2 mg/dL (0.1-1.0); Blood Urea Nitrogen 23 mg/dL (8-24); CO2, Blood 25 mmol/L (21-32); Calcium, Blood 9.5 mg/dL (8.5-10.1); Chloride, Blood 105 mmol/L (98-108); Creatinine, Blood 0.79 mg/dL (0.40-1.00); Globulin, Blood 3.9 g/dL (2.2-4.0); Glomerular Filtration Rate >60 (60-); Glucose, Blood 100 mg/dL (70-99); Potassium, Blood 4.4 mmol/L (3.5-5.5); Sodium, Blood 138 mmol/L (136-145); Total Protein, Blood 7.7 g/dL (6.4-8.2)
== END 2021-03-28 02:05 | disposition home or self-care (01) ==
LOC: ER 17:21
PROVIDERS: Physician Assistant
DX: R10.9 Unspecified abdominal pain (principal); I10 Essential (primary) hypertension; Z87.891 Personal history of nicotine dependence; Z91.018 Allergy to other foods; Z79.899 Other long term (current) drug therapy
CPT/HCPCS: 36415; 74177; 80053; 83690; 85025; 93005; 93010; 99284-25; J1885; J2405; Q9967

== ENCOUNTER 2024-02-27 10:18 | Inpatient (IN) | payer MEDICARE, OTHER ==
[~2024-02-27] VITALS: Ht 162.6 cm; Wt 97.7 kg
[2024-02-27] MEDS ORDERED: HYDROCODONE-AC1 EA19 PO (10:36)
[2024-02-27] MEDS ORDERED: FAMO40 PO (10:47)
[2024-02-27] MEDS ORDERED: LOVASTATIN40 MG PO (10:47)
[2024-02-27] MEDS ORDERED: Prinivil10 MG PO (10:48)
[2024-02-27] MEDS ORDERED: Prochlorperazine Edisylate 10 mg Vial IV ONE (10:50)
[2024-02-27] MEDS ORDERED: Pantoprazole Sodium 40 MG Injection IV ONE (10:50)
[2024-02-27 10:58] LABS: BASOPHILS ABSOLUTE AUTO 0.05 K/mm3 (0.00-0.23); BASOPHILS PERCENT AUTO 0 % (0-2); EOSINOPHILS ABSOLUTE AUTO 0.02 K/mm3 (0.00-0.68); EOSINOPHILS PERCENT AUTO 0 % (0-6); Hematocrit 36.1 % (33.0-51.0); Hemoglobin 11.5 g/dL (11.5-16.0); IMMATURE GRAN ABSOLUTE AUTO 0.06 K/mm3 (0.00-0.10); IMMATURE GRAN PERCENT AUTO 0 % (0-1); LYMPHOCYTES ABSOLUTE AUTO 1.12 K/mm3 (0.84-5.20); LYMPHOCYTES PERCENT AUTO 8 % (21-46); MONOCYTES ABSOLUTE AUTO 0.83 K/mm3 (0.16-1.47); MONOCYTES PERCENT AUTO 6 % (4-13); Mean Corpuscular HGB 25.1 pg (26.0-34.0); Mean Corpuscular HGB Conc 31.9 g/dL (31.5-36.5); Mean Corpuscular Volume 79 fL (80-100); Mean Platelet Volume 10.8 fL (9.1-12.4); NEUTROPHILS ABSOLUTE AUTO 11.77 K/mm3 (1.96-9.15); NEUTROPHILS PERCENT AUTO 85 % (41-73); Platelet Count 201 K/mm3 (150-400); RDW Coefficient Variation 15.9 % (11.7-14.2); RDW Standard Deviation 45.5 fL (35.1-46.3); Red Blood Cell Count 4.58 M/mm3 (3.80-5.20); White Blood Cell Count 13.85 K/mm3 (4.00-11.30)
[2024-02-27 11:12] LABS: Albumin, Blood 3.8 g/dL (3.4-5.0); Albumin/Globulin Ratio 1.1 (0.8-1.8); Bilirubin, Total 0.6 mg/dL (0.1-1.0); Bun/Creatinine Ratio 22.8 (12.0-20.0); Calcium, Blood 9.6 mg/dL (8.5-10.1); Creatinine, Blood 0.66 mg/dL (0.40-1.00); Globulin, Blood 3.6 g/dL (2.2-4.0); Potassium, Blood 3.8 mmol/L (3.5-5.5); Total Protein, Blood 7.4 g/dL (6.4-8.2)
[2024-02-27 12:27] LABS: International Normalized Ratio 1.02; Prothrombin Time Results 10.9 Sec (9.7-11.5)
[2024-02-27] MEDS ORDERED: Acetaminophen 325 MG TABLET PO PRN (15:30)
[2024-02-27] MEDS ORDERED: Magnesium Hydroxide Conc 10 ML UDC PO PRN (15:30)
[2024-02-27] MEDS ORDERED: Aspirin 81 MG Chew PO ONE (16:05)
[2024-02-27 16:26] VITALS: BP 184/82
[2024-02-27] MEDS ORDERED: Dose Adjust by Pharmacy XX STA (16:41)
[2024-02-27] MEDS ORDERED: Heparin Sodium,Porcine/0.5 NS 500 ML IV SCH (16:45)
[2024-02-27] MEDS ORDERED: ACET500 PO (17:22)
[2024-02-27] MEDS ORDERED: VITAMIN D325 MC3 PO (17:23)
[2024-02-27] MEDS ORDERED: Labetalol HCL 5 MG/ML 4ML Injection (Single Dose) IV PRN (17:30)
--- NOTE | 2024-02-27 18:41 | NUR ---
Admission/Shift Summary: Patient admitted to PCU 18 at approx 1600hr. Patient alert and oriented x4. C/o headache pain, effectively managed with prn tylenol. VSS, SpO2- 97% on RA. Denies chest pain or discomfort. Repeat troponin value continues to increase. Call placed to Dr. George, cardiology consult in place, heparin gtt per pharmacy started. Keeping patient NPO after mid-night per possible PCI tomorrow. Peripheral IV x2 patent and intact. Voiding using purwick without difficulty. Red excoriation to labia and buttocks, cleansed well and new attends placed. Call light in reach, makes needs known. Will continue to monitor until report to NOC shift RN.
[2024-02-27 20:00] VITALS: BP 149/67
[2024-02-27] MEDS ORDERED: HYDROcodone 5-APAP 325 TAB PO PRN (20:20)
[2024-02-27] MEDS ORDERED: Docusate Sodium 100 MG Cap PO SCH (21:00)
[2024-02-27] MEDS ORDERED: Metoprolol Tartrate 25 MG Tab PO SCH (21:00)
[2024-02-28] VITALS (7 sets, daily range): BP systolic 124–161; BP diastolic 57–108
[2024-02-28] MEDS ORDERED: Clarify Drug Order XX ONE ×2 (00:15→06:35)
[2024-02-28] MEDS ORDERED: Pantoprazole Sodium 40 MG Tab PO SCH (06:00)
--- NOTE | 2024-02-28 06:11 | NUR ---
SHIFT SUMMARY PT A&O X 3-4; PLEASANT AND COOPERATIVE WITH CARE. VSS; SBP 130'S, HR 70- 90'S, SP02 95% ON RA. PT DENIES CP/PRESSURE, SOB, PALPITATIONS. PT REPORTS MILD DIZZINESS, AT REST, THAT "COMES AND GOES". PT REPORTED NAUSEA X1, DECLINED MEDICATION IT QUICKLY RESOLVED. PT REPORTS HEADACHES ON AND OFF T/O THE SHIFT; 5-02/22. RELIEVED WITH REST AND PAIN MEDICATION PER NOV. PT ALSO REPORTS CHRONIC BACK PAIN AND PAIN RELATED TO NEUROPATHY THAT "IS LIKE BURNING ON FEET". ATTENDS CHECKED AND CHANGED Q2 OR PRN. NO BM THIS SHIFT. PUREWICK IN PLACE, WITH 400 MLS UOP. PT ALSO HAD A FEW INCONTINENT VOIDS. PT WITH MILD EXORIATION TO THE LABIA AND BUTTOCKS. NO ACUTE EVENTS THIS SHIFT. PT NPO SINCE 0000 PER ORDERS.
[2024-02-28 06:19] LABS: BASOPHILS ABSOLUTE AUTO 0.03 K/mm3 (0.00-0.23); BASOPHILS PERCENT AUTO 0 % (0-2); EOSINOPHILS ABSOLUTE AUTO 0.19 K/mm3 (0.00-0.68); EOSINOPHILS PERCENT AUTO 2 % (0-6); Hemoglobin 11.1 g/dL (11.5-16.0); IMMATURE GRAN ABSOLUTE AUTO 0.03 K/mm3 (0.00-0.10); IMMATURE GRAN PERCENT AUTO 0 % (0-1); LYMPHOCYTES PERCENT AUTO 22 % (21-46); MONOCYTES ABSOLUTE AUTO 0.46 K/mm3 (0.16-1.47); MONOCYTES PERCENT AUTO 6 % (4-13); Mean Corpuscular HGB 25.1 pg (26.0-34.0); Mean Corpuscular HGB Conc 31.7 g/dL (31.5-36.5); Mean Corpuscular Volume 79 fL (80-100); Mean Platelet Volume 11.1 fL (9.1-12.4); NEUTROPHILS ABSOLUTE AUTO 5.58 K/mm3 (1.96-9.15); NEUTROPHILS PERCENT AUTO 69 % (41-73); Platelet Count 179 K/mm3 (150-400); RDW Coefficient Variation 16.1 % (11.7-14.2); RDW Standard Deviation 46.5 fL (35.1-46.3); Red Blood Cell Count 4.42 M/mm3 (3.80-5.20); White Blood Cell Count 8.09 K/mm3 (4.00-11.30)
[2024-02-28 06:36] LABS: Alanine Aminotransfer (ALT/SGP 18 U/L (12-78); Albumin, Blood 3.3 g/dL (3.4-5.0); Alk Phos 115 U/L (50-136); Anion Gap 8 mmol/L (3-11); Aspartate Aminotrans (AST/SGOT 21 U/L (12-37); Bilirubin, Total 0.6 mg/dL (0.1-1.0); Blood Urea Nitrogen 12 mg/dL (8-24); Bun/Creatinine Ratio 19.8 (12.0-20.0); CHOL/HDL RATIO 2.7; CO2, Blood 26 mmol/L (21-32); Calcium, Blood 9.1 mg/dL (8.5-10.1); Chloride, Blood 112 mmol/L (98-108); Cholesterol 167 mg/dL (50-200); Creatinine, Blood 0.61 mg/dL (0.40-1.00); Globulin, Blood 3.3 g/dL (2.2-4.0); Glomerular Filtration Rate 91 (60-); Glucose, Blood 114 mg/dL (70-99); HDL Cholesterol 61 mg/dL (>39); LDL/HDL RATIO 1.4; Low Density Lipoprotein Chol 84 mg/dL (0-110); Potassium, Blood 3.7 mmol/L (3.5-5.5); Sodium, Blood 142 mmol/L (136-145); Total Protein, Blood 6.6 g/dL (6.4-8.2); Triglycerides 112 mg/dL (30-160); Very Low Density Lipoprot Chol 22 mg/dL (6-32)
[2024-02-28] MEDS ORDERED: Lisinopril 10 MG Tab PO SCH (09:00)
[2024-02-28] MEDS ORDERED: Atorvastatin 40 MG Tab PO SCH ×2 (09:00→21:00)
[2024-02-28] MEDS ORDERED: Aspirin 81 MG Chew PO SCH (09:00)
[2024-02-28] MEDS ORDERED: Atorvastatin 10 MG Tab PO SCH (09:00)
[2024-02-28] MEDS ORDERED: Regadenoson 0.4 MG/5 ML SYRINGE ONE (11:12)
[2024-02-28] MEDS ORDERED: Enoxaparin 40 MG/0.4 ML SYR SC SCH (17:00)
--- NOTE | 2024-02-28 17:27 | NUR ---
SUMMARY PT A/O X4. OOB TO BSC PRN WITH 1 PERSON ASSIST AND FWW. ABLE TO USE CALL LIGHT APPROPRIATELY. PT HAD FIRST PORTION OF STRESS TEST TODAY AND WILL BE NPO AFTER MN FOR NEXT PORTION. ECHO AND CXR DONE TODAY. DENIES CP OR PRESSURE TODAY. NO OTHER CHANGES THIS SHIFT.
[2024-02-28] MEDS ORDERED: Metoprolol Succinate 25 MG TABCR PO SCH (21:00)
[2024-02-28] MEDS ORDERED: Metoprolol Succinate 50 MG TABCR PO SCH (21:00)
[2024-02-29 04:00] VITALS: BP 138/67
[2024-02-29 04:12] LABS: Hematocrit 34.2 % (33.0-51.0); Hemoglobin 10.8 g/dL (11.5-16.0)
[2024-02-29 04:33] LABS: Bun/Creatinine Ratio 15.5 (12.0-20.0); Calcium, Blood 9.1 mg/dL (8.5-10.1); Creatinine, Blood 0.71 mg/dL (0.40-1.00); Potassium, Blood 3.5 mmol/L (3.5-5.5)
--- NOTE | 2024-02-29 06:10 | NUR ---
SHIFT SUMMARY PT A&O X4. VSS; SBP 128 -138, SR WITH RATE IN 70'S, AFEBRILE, SPO2 GREATER THAN 95% ON RA. PT DENIES CP/PRESSURE, SOB, DIZZINESS, N/V. PT CONTINUES TO REPORT GENERALIZED, CHRONIC PAIN. REST, REPOSITIONING AND MEDICATION PER MAR TO HELP MANAGE PAIN, WITH MODERATE RELIEF. NO ACUTE EVENTS OVERNIGHT. PT RESTED WELL T/O SHIFT. PUREWICK IN PLACE TO SUCTION; 250 MLS UOP. PT ALSO HAD 2 INCONTINENT/UNMEASURED VOIDS. PT WITH LOOSE STOOLS STARTING YESTERDAY. PT AMBULATING TO BSC WITH 1 PERSON ASSIST AND TOLERATING FAIRLY. PT NPO SINCE MIDNIGHT FOR 2ND PORTION OF STRESS TEST THIS AM. CALL LIGHT IN REACH. WILL UDPATE ONCOMING RN
[2024-02-29 07:21] VITALS: BP 133/74
[2024-02-29] MEDS ORDERED: Clopidogrel Bisulfate 300 MG Cap PO ONE ×2 (08:05→11:15)
[2024-02-29] MEDS ORDERED: Empagliflozin 10 MG TAB PO SCH (09:00)
[2024-02-29 14:55] VITALS: BP 162/105
--- NOTE | 2024-02-29 16:36 | NUR ---
SHIFT SUMMARY NO ACUTE CHANGES THIS SHIFT. PT HAS REMAINED AWAKE, ALERT, AND ORIENTED. PT ANSWERS QUESTIONS APPROPRIATELY. PT IS FORGETFUL AT TIMES. PT HAS DENIED CHEST PAIN OR PRESSURE THIS SHIFT. PT MED WITH TYLENOL PER EMAR FOR HEADACHE. PT FINISHED STRESS TEST THIS SHIFT. PLAN FOR ANGIO TOMORROW PER DR MARION, PT AND SON UPDATED TO PLAN OF CARE. VITAL SIGNS HAVE REMAINED STABLE. IV SALINE LOCKED. PT WITH PUREWICK IN PLACE WITH YELLOW URINE OUTPUT NOTED. PT UP OOB TO CHAIR THIS SHIFT WITH PHYSICAL THERAPY. WILL CONTINUE TO MONITOR AND REPORT OFF TO ONCOMING RN.
[2024-02-29 20:00] VITALS: BP 164/73
[2024-02-29] MEDS ORDERED: DEXTROMETHORPHAN/BENZOCAINE 1 EACH LOZENGE MT PRN (20:00)
[2024-02-29] MEDS ORDERED: DEXTROMETHORPHAN/BENZOCAINE 1 EACH LOZENGE MT ONE (20:00)
[2024-02-29 23:51] VITALS: BP 150/84
[2024-03-01] VITALS (9 sets, daily range): BP systolic 115–160; BP diastolic 59–97
[2024-03-01 04:00] LABS: Hematocrit 33.8 % (33.0-51.0); Hemoglobin 10.7 g/dL (11.5-16.0); Mean Corpuscular HGB 25.3 pg (26.0-34.0); Mean Corpuscular HGB Conc 31.7 g/dL (31.5-36.5); Mean Corpuscular Volume 80 fL (80-100); Mean Platelet Volume 11.1 fL (9.1-12.4); Platelet Count 196 K/mm3 (150-400); RDW Coefficient Variation 16.4 % (11.7-14.2); RDW Standard Deviation 46.9 fL (35.1-46.3); Red Blood Cell Count 4.23 M/mm3 (3.80-5.20)
[2024-03-01 04:15] LABS: Calcium, Blood 8.9 mg/dL (8.5-10.1); Creatinine, Blood 0.71 mg/dL (0.40-1.00); Potassium, Blood 3.6 mmol/L (3.5-5.5)
--- NOTE | 2024-03-01 06:17 | NUR ---
SHIFT SUMMARY PT A&O X4. VSS; SBP 130 - 160, SR WITH RATE IN 70 - 80'S, AFEBRILE, REMAINS ON RA WITH SPO2 GREATER THAN 94%. PT DENIES CP/PRESSURE, DIZZINESS, SOB, N/V, PALPITATIONS. PT REPORTS GENERAL, CHRONIC PAIN; MEDICATION PER MAR, WELL REPOSITIONING AND REST TO HELP MANAGE PAIN. PT RESTED WELL T/O THE NIGHT. NO ACUTE EVENTS OVERNIGHT. PUREWICK AND ATTENDS IN PLACE, NO BM THIS SHIFT. CALL LIGHT IN REACH AND PT ABLE TO VERBALIZE NEEDS. WILL UPDATE ONCOMING RN
[2024-03-01] MEDS ORDERED: Clopidogrel Bisulfate 75 MG Tab PO SCH (09:00)
[2024-03-01] MEDS ORDERED: NS 1,000 ML IV ONE ×2 (14:31→15:55)
[2024-03-01] MEDS ORDERED: Heparin Sodium 1000 Units/ML 10ML MDV ONE ×2 (14:31→15:55)
[2024-03-01] MEDS ORDERED: NS 250 ML IV ONE (14:31)
[2024-03-01] MEDS ORDERED: NiCARdipine HCL 1,000 MCG/5 ML SYR ONE (14:31)
[2024-03-01] MEDS ORDERED: Nitroglycerin 2 MG/20 ML BTL ONE (14:32)
[2024-03-01] MEDS ORDERED: Midazolam HCl 1MG / ML 2ML Vial ONE (15:55)
[2024-03-01] MEDS ORDERED: FentaNYL Citrate 50 MCG/ML 2 ML Injection ONE (15:55)
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
[2024-03-01] MEDS ORDERED: HydrALAZINE HCl 20 MG / ML 1ML Vial ONE (16:28)
[2024-03-01] MEDS ORDERED: HydrALAZINE HCl 20 MG / ML 1ML Vial IV PRN (16:55)
[2024-03-01] MEDS ORDERED: Furosemide 10 MG/ML 4ML Vial IV ONE (16:55)
--- NOTE | 2024-03-01 18:55 | NUR ---
End of shift note. Pt has been resting in bed for much of the day. Some complaints of her normal CP which she reports she has had all of her life. No complaints SOB or any new pain. Pt down for angio this shift, no interventions. Right radial site. TR band to started deflating at 1845. Pt was given education on not using the right hand/wrist but will need frequent reinforcement. Pt was OOB to the recliner for much of the day, using the BSC. 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 Son has been in to visit this shift. Pt is able to make needs known, call light is within reach.
--- NOTE | 2024-03-01 20:49 | NUR ---
EKG ORDER AND OBTAINED. PATIENT WITH SUDDEN ONSET OF NAUSEA, VOMITTING ABD PAIN, OVERALL PALLOR, TELEMETRY ON PATIENT APPEARED TO HAVE CHANGE SHORTLY AFTER RETURN FROM CATH. EKG OBTAINED HOSPITALIST RESIDENT REVIEWED. NO ACUTE APPEARING CHANGES NOTED. CHARGE AND PRIMARY RN'S INFORMED.
[2024-03-01] MEDS ORDERED: Lisinopril 10 MG Tab PO SCH (21:00)
--- NOTE | 2024-03-01 21:28 | NUR ---
PATIENT WITH ACTIVE VOMITING. SPOKE WITH RESIDENT HOSPITALIST NEW ORDERS FOR MEDICATIONS, FOR NAUSEA, AND A ONE TIME OF IV PPI. QT NOT PROLONGED, CONFIRMED WITH MEDIA TRAFFIC MANAGER WHILE ON PHONE WITH PROVIDER.
[2024-03-01] MEDS ORDERED: Pantoprazole Sodium 40 MG Injection IV SCH (22:00)
[2024-03-01] MEDS ORDERED: Ondansetron 4 MG SoluTab MM ONE (22:00)
[2024-03-01] MEDS ORDERED: Ondansetron 4 MG SoluTab MM PRN (22:00)
[2024-03-02] VITALS: BP 151/76
[2024-03-02 03:48] LABS: BASOPHILS ABSOLUTE AUTO 0.02 K/mm3 (0.00-0.23); BASOPHILS PERCENT AUTO 0 % (0-2); EOSINOPHILS ABSOLUTE AUTO 0.01 K/mm3 (0.00-0.68); EOSINOPHILS PERCENT AUTO 0 % (0-6); Hematocrit 37.5 % (33.0-51.0); Hemoglobin 11.8 g/dL (11.5-16.0); IMMATURE GRAN ABSOLUTE AUTO 0.05 K/mm3 (0.00-0.10); IMMATURE GRAN PERCENT AUTO 0 % (0-1); LYMPHOCYTES ABSOLUTE AUTO 1.89 K/mm3 (0.84-5.20); LYMPHOCYTES PERCENT AUTO 15 % (21-46); MONOCYTES ABSOLUTE AUTO 0.68 K/mm3 (0.16-1.47); MONOCYTES PERCENT AUTO 5 % (4-13); Mean Corpuscular HGB Conc 31.5 g/dL (31.5-36.5); Mean Corpuscular Volume 79 fL (80-100); Mean Platelet Volume 10.6 fL (9.1-12.4); NEUTROPHILS PERCENT AUTO 80 % (41-73); Platelet Count 249 K/mm3 (150-400); RDW Standard Deviation 47.8 fL (35.1-46.3); Red Blood Cell Count 4.72 M/mm3 (3.80-5.20); White Blood Cell Count 13.05 K/mm3 (4.00-11.30)
[2024-03-02 04:04] LABS: Calcium, Blood 9.3 mg/dL (8.5-10.1); Creatinine, Blood 0.83 mg/dL (0.40-1.00); Magnesium, Blood 1.9 mg/dL (1.6-2.4); Potassium, Blood 3.6 mmol/L (3.5-5.5)
[2024-03-02 04:15] VITALS: BP 127/66
--- NOTE | 2024-03-02 05:24 | NUR ---
SHIFT SUMMARY PT A&O REMAINS THE SAME, ALTHOUGH PT IS MORE FORGETFUL THAN PREVIOUS AND FREQUENT REPETITION OF QUESTIONS AND STORIES. VS; SBP 115 - 150, SR/ST WITH RATE IN 90 - 1 TEENS, OCCASSIONALLY TOUCHING INTO THE 130'S. PT DID HAVE 3 SEC RUN OF SVT ON THE TELE MONITOR, PATIENT CARE REPORTED RATE IN 150'S. PT DENIES SX. PT DENIES CP/PRESSURE AND SOB. PT DOES REPORT DIZZINESS AT TIMES, NAUSEA WITH EMESIS X4 THIS SHIFT. PT MEDICATED PER MAR WITH GOOD RELIEF. PT REPORTS HEADACHES 8/10, MEDICATION PER NOV WITH LITTLE RELIEF. PT APPEARS PALLOR AND REPORTS FEELING "TIRED AND NOT WELL". PT RESTED ON AND OFF T/O SHIFT. TR BAND FULLY RECOVERED WITH ARMBOARD IN PLACE, SITE WNL. PT NEEDING FREQUENT REMINDERS NOT TO UTILIZE THAT ARM. SEE PREVIOUS NOTES ABOUT EKG AND TELE CHANGES. PUREWICK AND ATTENDS IN PLACE, NO BM THIS SHIFT. PT ABLE TO GET UP AND AMBULATE TO BSC WITH FWW, GAIT BELT AND 1 PERSON ASSIST. CALL LIGHT IN REACH AND PT ABLE TO VERBALIZE NEEDS. WILL UPDATE ONCOMING RN
[2024-03-02 07:51] VITALS: BP 131/80
[2024-03-02] MEDS ORDERED: Metoprolol Succinate 50 MG TABCR PO SCH (09:00)
[2024-03-02] MEDS ORDERED: Furosemide 40 MG Tab PO SCH (09:00)
[2024-03-02] MEDS ORDERED: METO50ER PO (09:45)
[2024-03-02] MEDS ORDERED: ATOR40TA PO (09:46)
[2024-03-02] MEDS ORDERED: JARDIANCE10 MG PO (09:48)
[2024-03-02] MEDS ORDERED: FURO40 PO (09:48)
[2024-03-02] MEDS ORDERED: ASPI81CH PO (09:48)
[2024-03-02] MEDS ORDERED: ONDA4ODT SL (09:49)
--- NOTE | 2024-03-02 10:32 | NUR ---
Patient is sitting on a chair and alert. She tells me that she did not need any stints or have any major surgery suggested and is is D/C process while we were talking. Patient emphasized the gratitude she has for the medical team and the Lord for the help and kind treatment. She expresses no concerns about going home but asks for a prayer to be said. I provded a prayer and blessing and patient responded well . She voiced her appreciation for the spiritual care she received. I will continue to remain available to patient and family.
[2024-03-02] MEDS ORDERED: CLOP75 PO (11:12)
--- NOTE | 2024-03-02 11:44 | NUR ---
Discharge note. Pt and son were given discharge instructions. All questions were answered. Pt was educated on the importance of follow up care. IV site was removed. Radial site CDI. Pt was escorted to the door. All belongings were taken with the Pt. Son to transport home.
== END 2024-03-02 13:00 | disposition home or self-care (01) | DRG 281 ==
LOC: ER 10:18 → PCU 10:19 → ER 10:19 → PCU 10:19
PROVIDERS: Emergency Medicine; Family Medicine; ADMIT Hospitalist
PROC: B2111ZZ Fluoroscopy of Multiple Coronary Arteries using Low Osmolar Contrast (ICD-10-PCS; principal; 2024-03-01)
PROC: 4A023N7 Measurement of Cardiac Sampling and Pressure, Left Heart, Percutaneous Approach (ICD-10-PCS; 2024-03-01)
DX: I21.4 Non-ST elevation (NSTEMI) myocardial infarction (principal); I42.8 Other cardiomyopathies; I50.22 Chronic systolic (congestive) heart failure; I11.0 Hypertensive heart disease with heart failure; K44.9 Diaphragmatic hernia without obstruction or gangrene; D64.9 Anemia, unspecified; I44.7 Left bundle-branch block, unspecified; K22.70 Barrett's esophagus without dysplasia; Z85.43 Personal history of malignant neoplasm of ovary; E78.00 Pure hypercholesterolemia, unspecified; Z88.5 Allergy status to narcotic agent; Z88.8 Allergy status to other drugs, medicaments and biological substances; Z91.013 Allergy to seafood; E66.9 Obesity, unspecified; M54.9 Dorsalgia, unspecified; Z87.891 Personal history of nicotine dependence; Z66 Do not resuscitate; K21.9 Gastro-esophageal reflux disease without esophagitis; Z87.81 Personal history of (healed) traumatic fracture; Z90.49 Acquired absence of other specified parts of digestive tract; Z98.890 Other specified postprocedural states; Z79.891 Long term (current) use of opiate analgesic; Z79.811 Long term (current) use of aromatase inhibitors; Z68.36 Body mass index [BMI] 36.0-36.9, adult
CPT/HCPCS: 36415; 71045; 74177; 76937; 78452; 80048; 80053; 80061; 83036; 83605; 83690; 83735; 84484; 85014; 85018; 85025; 85027; 85520; 85610; 86850; 86900; 86901; 93005; 93010; 93017; 93458; 96372; 96374; 96375; 97110; 97161; 97165; 97530; 99152; 99153; 99285-25; A9270; A9500; C1769; C1894; C8929; C9113; G0378; J0360; J0780; J1644; J1650; J1940; J2250; J2785; J3010; J7030; J7050; Q9957; Q9967

== ENCOUNTER 2024-05-03 10:42 | Emergency (ER) | payer MEDICARE, OTHER ==
[~2024-05-03] VITALS: Ht 162.6 cm; Wt 90.7 kg
[~2024-05-03 10:42] MED LIST changes: +ACET500 PO; +ASPI81CH PO; +ATOR40TA PO; +CLOP75 PO; +FAMO40 PO; +FURO40 PO; +HYDROCODONE-AC1 EA19 PO; +JARDIANCE10 MG PO; +LOVASTATIN40 MG PO; +METO50ER PO; +ONDA4ODT SL; +VITAMIN D325 MC3 PO
[2024-05-03 10:57] VITALS: BP 163/88
[2024-05-03] MEDS ORDERED: JARDIANCE10 MG PO (12:05)
[2024-05-03] MEDS ORDERED: Lasix40 MG PO (12:05)
[2024-05-03] MEDS ORDERED: CLOP75 PO (12:05)
[2024-05-03] MEDS ORDERED: Prinivil10 MG PO (12:05)
[2024-05-03] MEDS ORDERED: ATOR40TA PO (12:05)
[2024-05-03] MEDS ORDERED: Toprol Xl50 MG PO (12:05)
== END 2024-05-03 12:35 | disposition home or self-care (01) ==
LOC: ER 10:42
DX: Z76.0 Encounter for issue of repeat prescription (principal); I10 Essential (primary) hypertension; Z88.5 Allergy status to narcotic agent; Z88.8 Allergy status to other drugs, medicaments and biological substances; Z79.899 Other long term (current) drug therapy; Z79.82 Long term (current) use of aspirin; Z87.891 Personal history of nicotine dependence
CPT/HCPCS: 99281

== ENCOUNTER → 2024-10-04 | Outpatient (CLI) | payer SELFPAY ==
[~2024-10-04] MED LIST changes: +Lasix40 MG PO; +Toprol Xl50 MG PO
[2024-10-04 17:07] LABS: Hematocrit 37.9 % (33.0-51.0); Hemoglobin 11.8 g/dL (11.5-16.0); Mean Corpuscular HGB 24.9 pg (26.0-34.0); Mean Corpuscular HGB Conc 31.1 g/dL (31.5-36.5); Mean Corpuscular Volume 80 fL (80-100); Mean Platelet Volume 11.2 fL (9.1-12.4); Platelet Count 237 K/mm3 (150-400); RDW Coefficient Variation 15.2 % (11.7-14.2); RDW Standard Deviation 44.3 fL (35.1-46.3); Red Blood Cell Count 4.73 M/mm3 (3.80-5.20); White Blood Cell Count 10.46 K/mm3 (4.00-11.30)
[2024-10-04 17:25] LABS: Anion Gap 9 mmol/L (3-11); Blood Urea Nitrogen 30 mg/dL (8-24); Bun/Creatinine Ratio 32.6 (12.0-20.0); CHOL/HDL RATIO 3.5; CO2, Blood 27 mmol/L (21-32); Calcium, Blood 9.4 mg/dL (8.5-10.1); Chloride, Blood 107 mmol/L (98-108); Cholesterol 198 mg/dL (50-200); Creatinine, Blood 0.92 mg/dL (0.40-1.00); Glomerular Filtration Rate 64 (60-); Glucose, Blood 108 mg/dL (70-99); HDL Cholesterol 56 mg/dL (>39); LDL/HDL RATIO 1.7; Low Density Lipoprotein Chol 96 mg/dL (0-110); Potassium, Blood 4.4 mmol/L (3.5-5.5); Sodium, Blood 139 mmol/L (136-145); Triglycerides 228 mg/dL (30-160); Very Low Density Lipoprot Chol 45 mg/dL (6-32)
== END ==
LOC: LAB SHORT 15:56 → LAB 15:56
DX: I10 Essential (primary) hypertension (principal)
CPT/HCPCS: 80048; 80061; 84443; 85027